=== PATIENT | female | born 1990 | race Asian ===

== ENCOUNTER 2017-03-13 09:06 | Emergency (ER) | payer OTHER ==
[2017-03-13 09:27] VITALS: BP 113/76
--- NOTE | 2017-03-13 10:59 | UC ---
Tyler Hogue Aidan, scribed for Nahun Hunt MD on 03/13/17 at 0942 . Skin Complaint HPI - HPI Summary HPI Summary: 26 y/o female presents to the Urgent Care with a complaint of an acute, constant , moderately sized pimple on her RUE. 2 weeks ago, she popped the pimple and white puss oozed out. A pharmacist then gave her an ointment and told her to pop it again if it swells. This morning, she popped it again and clear fluid came out. Associated symptoms include mild RUE swelling and moderate (6/10) pain at the fingers of the right hand. Pt is unsure of whether or not she is . Medications reviewed. - History of Current Complaint Chief Complaint: UCSkin Time Seen by Provider: 03/13/17 09:18 Stated Complaint: RED AREA ON ARM Hx Obtained From: Patient Hx Last Menstrual Period: 02/11/17 Onset/Duration: Sudden Onset, Lasting Days, Still Present Timing: Constant Onset Severity: Moderate Current Severity: Moderate Pain Intensity: 6 Pain Scale Used: 0-10 Numeric Location: Discrete - RUE Character: Raised Aggravating: Other - unknown Alleviating: Other - unknown Associated Signs & Symptoms: Negative: Negative - pain at fingers on right hand , RUE swelling - Allergy/Home Medications Allergies/Adverse Reactions: Allergies Allergy/AdvReac Type Severity Reaction Status Date / Time Sulfa drugs Allergy Rash And Uncoded 03/13/17 09:27 Itching Home Medications: Home Medications Loratadine 1 tab PO DAILY 03/13/17 [History Confirmed 03/13/17] Review of Systems Constitutional: Negative Skin: Other - pimple on RUE Eyes: Negative ENT: Negative Respiratory: Negative Cardiovascular: Negative Gastrointestinal: Negative Genitourinary: Negative Motor: Negative Neurovascular: Negative Musculoskeletal: Edema - mild RUE swelling with pain at the fingers on the right hand Neurological: Negative Psychological: Negative All Other Systems Reviewed And Are Negative: Yes PMH/Surg Hx/FS Hx/Imm Hx - Surgical History Surgical History: Yes Surgery Procedure, Year, and Place: Back surgery L-5, S-1 - Family History Known Family History: Positive: Hypertension - Social History Occupation: Employed Full-time Lives: With Family Alcohol Use: None Substance Use Type: None Smoking Status (MU): Never Smoked Tobacco - Immunization History Most Recent Tetanus Shot: not sure Physical Exam Triage Information Reviewed: Yes Appearance: Well-Appearing, No Pain Distress Vital Signs: Initial Vital Signs Temp 98.2 F 03/13/17 09:15 Pulse 70 03/13/17 09:15 Resp 18 03/13/17 09:15 BP 113/76 03/13/17 09:15 Pulse Ox 98 03/13/17 09:15 Vital Signs Reviewed: Yes Eye Exam: Normal Eyes: Positive: Other: - PERRL, EOMI ENT Exam: Normal ENT: Positive: Normal ENT inspection Neck exam: Normal Neck: Positive: Supple, Nontender Respiratory Exam: Normal Respiratory: Positive: Other: - CTA, breath sounds present Cardiovascular Exam: Normal Cardiovascular: Positive: RRR Abdominal Exam: Normal Abdomen Description: Positive: Nontender, Soft Bowel Sounds: Positive: Present Musculoskeletal Exam: Normal Musculoskeletal: Positive: Strength Intact, ROM Intact, Other: - right forearm on dorsal aspect raised erythematous area 3cm in diameter, in the middle there is an open area with no obvious puss collection for drainage, she has good ROM of her fingers Neurological Exam: Normal Neurological: Positive: Alert Psychological Exam: Normal Psychological: Positive: Age Appropriate Behavior Skin Exam: Normal Skin: Positive: Other - right forearm on dorsal aspect raised erythematous area 3cm in diameter, in the middle there is an open area with no obvious puss collection for drainage, she has good ROM of her fingers Course/Dx - Course Course Of Treatment: 26 y/o female presents with a raised, erythematous area that is 3cm in diameter on the dorsal aspect of the right forearm. In the middle there is an open area with no obvious puss collection for drainage. She has good ROM of her fingers. Medications reviewed. - Diagnoses Provider Diagnoses: CELLULITIS RT FOREARM Discharge - Discharge Plan Condition: Stable Disposition: HOME Prescriptions: Cephalexin CAP* [Keflex CAP*] 500 mg PO QID #40 cap Mupirocin 2% OINT* [Bactroban 2 % Oint*] 1 applic TOPICAL BID #1 tube Patient Education Materials: Cellulitis (ED) Referrals: [facility] [place] [facility] REFERRAL [Outside] Additional Instructions: FOLLOW UP WITH YOUR DOCTOR. GO TO THE EMERGENCY DEPARTMENT FOR ANY WORSENING OF YOUR CONDITION OR QUESTIONS OR CONCERNS. The documentation as recorded by the Tyler moody Aidan accurately reflects the service I personally performed and the decisions made by , Nahun Hunt MD.
== END 2017-03-13 09:46 | disposition home or self-care (01) ==
LOC: UCEAST 09:06
DX: L03.113 Cellulitis of right upper limb (principal)
CPT/HCPCS: 84702; 99202; G0463